=== PATIENT | male | born 2000 | race Caucasian/White ===

== ENCOUNTER 2020-11-29 04:49 | Inpatient (IN) | payer BC ==
[~2020-11-29] VITALS: Ht 182.9 cm; Wt 96.8 kg
--- NOTE | 2020-11-29 05:36 | NUR ---
He vasovagaled with IV start so his HOB was layed flat and he came to nearly immediatly. He was sweaty and clammy. HR decreased to 44 when this occurred and rebounded normally. He is talking to his sister on speaker phone.
[2020-11-29] MEDS ORDERED: acetaminophen 325mg tablet PO STA (05:50)
[2020-11-29 05:56] LABS: D-DIMER 0.45 MG/L FEU (0-0.50)
[2020-11-29 06:03] LABS: ALANINE AMINOTRANSFERASE 31 U/L (12-78); ALBUMIN/GLOBULIN RATIO 1.1 (1.1-1.5); ALKALINE PHOSPHATASE 63 IU/L (20-180); ANION GAP 10 (8-16); ASPARTATE AMINO TRANSFERASE 21 U/L (10-37); BILIRUBIN,TOTAL 0.4 MG/DL (0.1-1.0); BLOOD UREA NITROGEN 14 MG/DL (7-18); BUN/CREATININE RATIO 13.9 (5.4-32.0); C-REACTIVE PROTEIN 1.12 MG/DL (0.0-0.5); CALCIUM 8.3 MG/DL (8.5-10.1); CHLORIDE 104 MMOL/L (99-107); CREATININE 1.01 MG/DL (0.60-1.10); GLUCOSE 103 MG/DL (70-104); POTASSIUM 3.7 MMOL/L (3.5-5.1); SODIUM 139 MMOL/L (135-145); TOTAL CARBON DIOXIDE 25.4 MMOL/L (24-32); TOTAL PROTEIN 7.7 G/DL (6.4-8.2); eGFR > 90 ML/MIN
[2020-11-29 06:09] LABS: BASOPHILS % (AUTO) 0.3 % (0-1); EOSINOPHILS % (AUTO) 0.2 % (0-6); HEMATOCRIT 37.9 % (42.0-52.0); HEMOGLOBIN 12.6 g/dl (14.0-17.9); LYMPHOCYTES % (AUTO) 15.7 % (21-51); MEAN CORPUSCULAR HEMOGLOBIN 28.1 PG (27.0-31.0); MEAN CORPUSCULAR HGB CONC 33.2 g/dL (33.0-36.5); MEAN CORPUSCULAR VOLUME 84.9 FL (78-98); MEAN PLATELET VOLUME 7.7 FL (7.4-10.4); MONOCYTES # (AUTO) 1.7 X10'3 (0-0.9); MONOCYTES % (AUTO) 13.7 % (2-12); NEUTROPHILS % (AUTO) 70.1 % (42-75); PLATELET COUNT 309 X10'3 (140-440); RED BLOOD COUNT 4.46 X10'6 (4.70-6.10); WHITE BLOOD COUNT 12.8 X10'3 (4.5-11.0)
[2020-11-29] MEDS ORDERED: iohexol 350MG/ML 100ml bottle IV ONE (06:37)
--- NOTE | 2020-11-29 06:38 | NUR ---
Spoke with Dr. White regarding patient possibly needing a troponin [address] White agreed. Placed verbal order. Called karyn in the lab at which [facility] BREEN had drawn the blood work and it will be added to previously drawn blood.
[2020-11-29] MEDS ORDERED: heparin 25,000 UNIT/250ml bag 250 ML IV SCH (07:50)
[2020-11-29] MEDS ORDERED: heparin 10,000 units/1 ML INJ IV ONE ×2 (07:50→08:00)
[2020-11-29] MEDS ORDERED: heparin 10,000 units/1 ML INJ IV PRN (08:00)
[2020-11-29] MEDS ORDERED: morphine 2 MG/ML inj. syringe IV PRN ×2 (08:20)
[2020-11-29] MEDS ORDERED: HYDROcodone/acetaminophen 5mg/325mg tablet PO PRN (08:20)
[2020-11-29] MEDS ORDERED: magnesium hydroxide 30ml (MOM) UD suspension PO PRN (08:20)
[2020-11-29] MEDS ORDERED: ondansetron/PF 4mg/2ml inj IV PRN (08:20)
[2020-11-29] MEDS ORDERED: mag hydrox/Alum hydrox/simeth 30ml oral suspension PO PRN (08:20)
[2020-11-29] MEDS ORDERED: acetaminophen 325mg tablet PO PRN ×2 (08:20)
[2020-11-29] MEDS ORDERED: HYDROcodone/acetaminophen 10/325mg tab PO PRN (08:20)
[2020-11-29] MEDS ORDERED: enoxaparin 100mg/ml syringe SUBCUT ONE (08:20)
--- NOTE | 2020-11-29 08:30 | NUR ---
Paged Dr. Vazquez regarding two anticoagulants ordered for patient.
--- NOTE | 2020-11-29 08:33 | NUR ---
Dr. Vazquez returned page. Stated to cancel Heparin drip and to administer lovenox as prescribed. Will cancel orders per MD request.
[2020-11-29] MEDS ORDERED: NO HOME MEDS (08:44)
[2020-11-29 09:22] LABS: PARTIAL THROMBOPLASTIN TIME 26 SECONDS (22-32)
--- NOTE | 2020-11-29 09:40 | NUR ---
PATIENT MOVED TO [facility] AND RESTING ON GURNEY. SEND-OUT COVID TEST DONE AND SENT TO THE LAB.
[2020-11-29] MEDS: enoxaparin 30mg/0.3ml syringe SUBCUT SCH (19:34)
[2020-11-29] MEDS: enoxaparin 60mg/0.6ml syringe SUBCUT SCH (19:34)
[2020-11-29] MEDS ORDERED: docusate sod 100mg capsule PO SCH (20:00)
--- NOTE | 2020-11-29 20:40 | NUR ---
Patient in room PCU 3014. I have received report from DAVONTE BREEN and had the opportunity to ask questions and assume patient care.
[2020-11-29 22:00] VITALS: BP 129/68
[2020-11-30 02:00] VITALS: BP 130/58
[2020-11-30 06:10] VITALS: BP 137/64
--- NOTE | 2020-11-30 06:10 | NUR ---
Patient in room PCU 3014. I have received report from MAUREEN BREEN and had the opportunity to ask questions and assume patient care. BEDSIDE REPORT RECIEVED. PT SLEEPING, NO DISTRESS. CALL LIGHT IN REACH. Addendum: 11/30/20 at 0713 by Hina Armenta RN Amended: Links added.
--- NOTE | 2020-11-30 06:24 | NUR ---
Problems reprioritized. Patient report given, questions answered & plan of care reviewed with Grace RN.
[2020-11-30 07:08] LABS: BASOPHILS % (AUTO) 0.5 % (0-1); EOSINOPHILS # (AUTO) 0.2 X10'3 (0-0.9); EOSINOPHILS % (AUTO) 2.8 % (0-6); HEMATOCRIT 39.7 % (42.0-52.0); HEMOGLOBIN 13.1 g/dl (14.0-17.9); LYMPHOCYTES # (AUTO) 2.1 X10'3 (1.1-4.8); LYMPHOCYTES % (AUTO) 26.1 % (21-51); MEAN CORPUSCULAR HEMOGLOBIN 28.7 PG (27.0-31.0); MEAN CORPUSCULAR HGB CONC 33.1 g/dL (33.0-36.5); MEAN CORPUSCULAR VOLUME 86.6 FL (78-98); MEAN PLATELET VOLUME 7.7 FL (7.4-10.4); MONOCYTES # (AUTO) 1.2 X10'3 (0-0.9); MONOCYTES % (AUTO) 15.4 % (2-12); NEUTROPHILS # (AUTO) 4.4 X10'3 (1.8-7.7); NEUTROPHILS % (AUTO) 55.2 % (42-75); PLATELET COUNT 306 X10'3 (140-440); RED BLOOD COUNT 4.59 X10'6 (4.70-6.10); RED CELL DISTRIBUTION WIDTH 13.4 % (11.5-14.5); WHITE BLOOD COUNT 7.9 X10'3 (4.5-11.0)
[2020-11-30 07:34] LABS: ALANINE AMINOTRANSFERASE 29 U/L (12-78); ALBUMIN 3.9 G/DL (3.4-5.0); ALBUMIN/GLOBULIN RATIO 1.1 (1.1-1.5); ALKALINE PHOSPHATASE 61 IU/L (20-180); ANION GAP 8 (8-16); ASPARTATE AMINO TRANSFERASE 14 U/L (10-37); BILIRUBIN,TOTAL 0.4 MG/DL (0.1-1.0); BLOOD UREA NITROGEN 8 MG/DL (7-18); BUN/CREATININE RATIO 7.9 (5.4-32.0); CALCIUM 8.6 MG/DL (8.5-10.1); CHLORIDE 107 MMOL/L (99-107); CREATININE 1.01 MG/DL (0.60-1.10); GLUCOSE 98 MG/DL (70-104); POTASSIUM 4.2 MMOL/L (3.5-5.1); SODIUM 143 MMOL/L (135-145); TOTAL CARBON DIOXIDE 28.5 MMOL/L (24-32); TOTAL PROTEIN 7.6 G/DL (6.4-8.2); eGFR > 90 ML/MIN
[2020-11-30] MEDS: enoxaparin 60mg/0.6ml syringe SUBCUT SCH (09:12)
[2020-11-30] MEDS: enoxaparin 30mg/0.3ml syringe SUBCUT SCH (09:12)
[2020-11-30] MEDS ORDERED: APIX5TAB3 PO (10:48)
--- NOTE | 2020-11-30 11:30 | NUR ---
ALL WRITTEN AND VERBAL ORDERS FOR D/C GIVEN TO PT AND MOM. ALL QUESTIONS ANSWERED, REMOVED PT PIVAlec VELASQUEZ. PT WITH [facility]. HOME WITH MOM. Addendum: 11/30/20 at 1203 by Hina Armenta RN Amended: Links added.
[2020-12-02 12:31] LABS: ANTITHROMBIN ACTIVITY 107 % (75-135); ANTITHROMBIN ANTIGEN 82 % (72-124); PROTEIN S, FREE 125 % (57-157); PROTEIN S, TOTAL 88 % (60-150)
== END 2020-11-30 11:36 | disposition home or self-care (01) | DRG 176 ==
LOC: ER 04:51 → ED HOLD 08:22 → PCU 3S 20:45
PROVIDERS: ADMIT Internal Medicine; ATTEND Internal Medicine
PROC: B32T1ZZ Computerized Tomography (CT Scan) of Left Pulmonary Artery using Low Osmolar Contrast (ICD-10-PCS; principal; 2020-11-29)
PROC: B3201ZZ Computerized Tomography (CT Scan) of Thoracic Aorta using Low Osmolar Contrast (ICD-10-PCS; 2020-11-29)
PROC: B32S1ZZ Computerized Tomography (CT Scan) of Right Pulmonary Artery using Low Osmolar Contrast (ICD-10-PCS; 2020-11-29)
DX: I26.99 Other pulmonary embolism without acute cor pulmonale (principal); I08.1 Rheumatic disorders of both mitral and tricuspid valves; Z20.822 Contact with and (suspected) exposure to COVID-19; Z79.01 Long term (current) use of anticoagulants
CPT/HCPCS: 36415; 71045; 71275; 80053; 81479; 83880; 83891; 83894; 83898; 84145; 84484; 85025; 85300; 85301; 85303; 85305; 85306; 85379; 85610; 85730; 86140; 86146; 86147; 87081; 87502; 87503; 87635; 93005; 93306; 99291; C9803; G0378; J1650; Q9967